=== PATIENT | male | born 1955 | race Caucasian/White ===

== ENCOUNTER 2024-02-26 09:16 | Outpatient (CLI) | payer MEDICARE, OTHER | END 2024-02-26 09:17 | disposition home or self-care (01) | LOC: CT 09:16 | PROVIDERS: ATTEND Orthopaedic Surgery | DX: M17.12 Unilateral primary osteoarthritis, left knee (principal) ==

== ENCOUNTER 2024-02-26 10:00 | Outpatient (CLI) | payer MEDICARE, OTHER ==
[2024-02-26 12:04] LABS: #Basophils 0.09 10x3/uL (0.0-0.2); %Basophils 1.1 % (0.0-1.0); %Eosinophils 2.1 % (0.0-10.0); %Lymphocytes 28.6 % (21.0-51.0); %Monocytes 6.5 % (0.0-10.0); %Neutrophils 61.2 % (42.0-75.0); Hematocrit 49.9 % (42.0-52.0); Hemoglobin 17.1 g/dL (14.0-18.0); Mean Corpuscular HGB CONC 34.3 g/dL (32.0-36.0); Mean Corpuscular Hemoglobin 32.2 pg (27.0-31.0); Mean Platelet Volume 8.9 fL (7.4-10.4); Platelet Count 271 10x3/uL (130-400); RBC Distribution Width 12.2 % (11.5-14.5); Red Blood Cell (RBC) Count 5.31 mill/uL (4.70-6.10)
[2024-02-26 12:15] LABS: Bilirubin Negative (Negative); Blood, Urine Negative (Negative); Clarity Clear (Clear); Glucose, Urine (Dipstick) Normal (Negative); Ketone, Urine Negative (Negative); Leukocyte Negative Leu/uL (Negative); Nitrite Negative (Negative); Protein, Urine (Dipstick) Negative (Neg-Trace); Specific Gravity, Urine 1.017 (1.002-1.036); Urobilinogen Normal mg/dL (Less than 2); pH, Urine 5.5 (5.0-9.0)
[2024-02-26 12:24] LABS: INR-International Normal Ratio 1.1; Prothrombin Time 13.8 sec (12.0-14.7)
[2024-02-26 12:45] LABS: Anion Gap 11 mmol/L (10-20); BUN (Urea Nitrogen) 15 mg/dL (8.4-25.7); Calc. Creatinine Clearance 0 mL/min (70-130); Calcium 9.5 mg/dL (7.8-10.44); Carbon Dioxide 27 mmol/L (23-31); Chloride 101 mmol/L (98-107); Estimated GFR 97; Glucose 79 mg/dL (80-115); Potassium 4.4 mmol/L (3.5-5.1); Sodium 135 mmol/L (136-145)
== END 2024-02-26 10:01 | disposition home or self-care (01) ==
LOC: LABBT 10:00
PROVIDERS: ATTEND Orthopaedic Surgery
DX: Z01.818 Encounter for other preprocedural examination (principal); M17.0 Bilateral primary osteoarthritis of knee
CPT/HCPCS: 71046; 80048; 81003; 85025; 85610; 87081; 93005; 93010

== ENCOUNTER 2024-03-04 09:00 | Observation (INO) | payer MEDICARE, OTHER ==
[2024-02-26 10:18] VITALS: BMI 36.5
[2024-03-04] MEDS ORDERED: Ondansetron PF 4 MG/2 ML Vial ONE (09:29)
[2024-03-04] MEDS ORDERED: PROPOFOL 20 ML ONE (09:29)
[2024-03-04] MEDS ORDERED: fentaNYL PF 100 MCG/2 ML SYRINGE ONE ×3 (09:29→14:22)
[2024-03-04] MEDS ORDERED: Bupivacaine PF 0.5% 30 ML VIAL ONE (09:34)
[2024-03-04] MEDS ORDERED: Tranexamic Acid 1,000 MG/10 ML VIAL ONE ×2 (09:35→13:00)
[2024-03-04] MEDS ORDERED: Vancomycin (BATCH) 1.5 GM/300 ML BAG ONE (09:36)
[2024-03-04] MEDS ORDERED: Sodium Chloride 0.9% 100 ML ONE (09:36)
[2024-03-04] MEDS ORDERED: fentaNYL 50 mcg/mL 1 mL Vial ONE (09:58)
[2024-03-04] MEDS ORDERED: Ropivacaine 0.5% HCl/PF (150 MG/30 ML VIAL) ONE (09:59)
[2024-03-04] MEDS ORDERED: Midazolam HCl 2 mg/2 ml Vial ONE (09:59)
[2024-03-04] MEDS ORDERED: CEFAZOLIN 2 GM VIAL ONE (10:04)
[2024-03-04] MEDS ORDERED: Lidocaine 1% PF 5 ML VIAL ONE (10:08)
[2024-03-04] MEDS ORDERED: methylPREDNISolone Acetate 40 mg/ml Vial ONE (10:08)
[2024-03-04] MEDS ORDERED: HYDROmorphone 2 MG/ML VIAL ONE (10:35)
[2024-03-04] MEDS ORDERED: Promethazine HCl 25 MG/ML VIAL IM PRN ×3 (11:00→12:28)
[2024-03-04] MEDS ORDERED: Ondansetron PF 4 MG/2 ML Vial IVP PRN (11:00)
[2024-03-04] MEDS ORDERED: fentaNYL 50 mcg/mL 1 mL Vial SLOW IVP PRN (11:00)
[2024-03-04] MEDS ORDERED: Ropivacaine 0.2% 550 ML 550 ML NERVE BLCK SCH (11:00)
[2024-03-04] MEDS ORDERED: traMADol HCl 50 MG TAB PO PRN ×2 (11:00)
[2024-03-04] MEDS ORDERED: Ondansetron HCl/PF 4 MG/2 ML Vial IVP PRN (11:50)
[2024-03-04] MEDS ORDERED: diphenhydrAMINE 25 MG CAP PO PRN (12:28)
[2024-03-04] MEDS ORDERED: Acetaminophen 325 MG TAB PO PRN (12:28)
[2024-03-04] MEDS ORDERED: Zolpidem Tartrate 5 MG TAB PO PRN (12:28)
[2024-03-04] MEDS ORDERED: Tranexamic Acid 1,000 MG in Sodium Chloride 0.9% 100 ML IVPB SCH (12:30)
[2024-03-04] MEDS ORDERED: PHENYLEPHRINE-NS 100 MCG/ML 10 ML SYRINGE ONE (12:36)
[2024-03-04] MEDS: Ketorolac Tromethamine 30 MG (1 mL) VIAL IVP SCH (15:11)
[2024-03-04] MEDS: Sodium Chloride 0.9% 1,000 ML IV SCH (15:12)
[2024-03-04] MEDS: CEFAZOLIN 2 GM in Sodium Chloride 0.9% 100 ML IVPB SCH (17:28)
[2024-03-04] MEDS: HYDROcodone/Acetaminophen 10/325 mg Tablet PO PRN ×2 (17:48→22:07)
[2024-03-04] MEDS: Ondansetron PF 4 MG/2 ML Vial IVP PRN (18:30)
[2024-03-04] MEDS: Aspirin 81 mg Enteric Coated Tablet PO SCH (22:06)
[2024-03-04] MEDS: Vancomycin (BATCH) 1.5 GM in Premix 1 BAG IVPB SCH (22:06)
[2024-03-05 06:49] LABS: Hematocrit 39.8 % (42.0-52.0); Hemoglobin 13.4 g/dL (14.0-18.0); Mean Corpuscular HGB CONC 33.7 g/dL (32.0-36.0); Mean Platelet Volume 8.9 fL (7.4-10.4); Platelet Count 242 10x3/uL (130-400); RBC Distribution Width 12.4 % (11.5-14.5); Red Blood Cell (RBC) Count 4.19 mill/uL (4.70-6.10)
[2024-03-05 08:36] VITALS: BP 142/79; TEMP 97.4
[2024-03-05] MEDS: Senokot S 8.6-50 MG TAB PO SCH (09:30)
[2024-03-05] MEDS: Ferrous Gluconate 324 MG TAB PO SCH (09:30)
[2024-03-05] MEDS: Multivitamin W/ Minerals 1 TAB PO SCH (09:30)
[2024-03-07] MEDS ORDERED: CeleCOXIB 100 MG CAP PO PRN (08:00)
== END 2024-03-05 13:37 | disposition home or self-care (01) ==
LOC: SDC 09:00 → SURG B 15:19
PROVIDERS: ADMIT Orthopaedic Surgery; ATTEND Orthopaedic Surgery
PROC: 0SRD0JZ Replacement of Left Knee Joint with Synthetic Substitute, Open Approach (ICD-10-PCS; principal; 2024-03-04)
PROC: 0S9C30Z Drainage of Right Knee Joint with Drainage Device, Percutaneous Approach (ICD-10-PCS; 2024-03-04)
DX: M17.0 Bilateral primary osteoarthritis of knee (principal); Z87.891 Personal history of nicotine dependence; Z79.899 Other long term (current) drug therapy
CPT/HCPCS: 0055T; 20610; 27447; 64447; 36415; 85027; A4306; C1713; C1776; C1889; J0665; J1010; J1885; J2250; J2405; J2704; J2795; J3010; J3370; J7030